=== PATIENT | male | born 1995 | race Caucasian/White ===

== ENCOUNTER 2016-10-14 19:27 | Emergency (ER) | payer OTHER ==
[~2016-10-14] VITALS: Ht 177.8 cm; Wt 84.0 kg
[2016-10-14 19:43] VITALS: BP 139/81; PULSE 86; RESP 16; TEMP 98.9; O2SAT 99
[2016-10-14] MEDS ORDERED: PROPARACAINE HCL 0.5% OPHT SOLN 15 ML BTL EACH EYE ONE (20:15)
--- NOTE | 2016-10-14 20:47 | PD ---
HPI Chief Complaint: Eye Problems/Injury Time Seen by Provider: 20:15 Travel History International Travel<30 days: No Contact w/Intl Traveler<30days: No Traveled to known affect area: No History of Present Illness HPI 21-year-old male presents emergency department for evaluation of right eye injury. Approximate 10 AM this morning patient reports he was weed whacking while at work and debris flew up into his right eye. He reports the pain was minimal but he noticed that his right pupil was larger than left. He then went to urgent care for evaluation of the right eye. According to his paperwork from the urgent care there was concern by the examining physician that there was fluorescein dye uptake in the anterior portion of the eye. He was instructed to have a prompt ophthalmology consult today but reports his workman' s comp never set up the appointment so he presents to the emergency department. Patient reports mild discomfort of the right eye. Mild blurred vision caused by tearing of the right eye. He reports that the pupil size has reduced improved since this morning. He denies headache, painful eye movement, nausea/ vomiting. PFSH Past Medical History Medical History: Denies Significant Hx ADHD: No Depression: Yes Cancer: No Cardiovascular Problems: No Diabetes: No Diminished Hearing: No Psychiatric: Yes (HX ODD IN PAST) Immunizations Current: Yes Migraines: Yes (PER PT-PT AND WHOLE ENTIRE FAMILY GETS MIGRAINES-UNTREATED) Seizures: No Thyroid Disease: No Ulcer: Yes (1 year ago) Tetanus Vaccination: < 5 Years Influenza Vaccination: No ?: Not Past Surgical History Appendectomy: No Cholecystectomy: No Other Surgery: No Social History Alcohol Use: No Tobacco Use: Yes (1 PPD) Substance Use: Yes (USES MARIJUANA 1-2 TIMES PER WEEK ( BY HX )) Allergies-Medications (Allergen,Severity, Reaction): Coded Allergies: Dilaudid (Verified Allergy, Severe, Hives, 11/16/15) Cat Dander (Verified Allergy, Mild, STUFFY NOSE, 10/12/15) Reported Meds & Prescriptions Reported Meds & Active Scripts Active Review of Systems Except as stated in HPI: all other systems reviewed are Neg Physical Exam Narrative GENERAL: Well-nourished, well-developed patient. SKIN: Focused skin assessment warm/dry. HEAD: Normocephalic. EYES: No scleral icterus. Right eye: Mild injection. Pupil 6-7 mm. Reactive to light. Cornea is clear. No foreseen dye uptake. No evidence of penetrating wound or corneal abrasion. Painless and intact EOMs. Visual acuity 20/25. IOP 16 right eye/14 left eye. NECK: Supple, trachea midline. No JVD or lymphadenopathy. CARDIOVASCULAR: Regular rate and rhythm without murmurs, gallops, or rubs. RESPIRATORY: Breath sounds equal bilaterally. No accessory muscle use. GASTROINTESTINAL: Abdomen soft, non-tender, nondistended. MUSCULOSKELETAL: No cyanosis, or edema. BACK: Nontender without obvious deformity. No CVA tenderness. Data Data Last Documented VS Vital Signs Date Time Temp Pulse Resp B/P Pulse Ox O2 Delivery O2 Flow Rate FiO2 10/14/16 19:43 98.9 86 16 139/81 99 Orders Proparacaine 0.5% Opth Soln (Alcaine 0.5 (10/14/16 20:15) MDM Medical Decision Making Medical Screen Exam Complete: Yes Emergency Medical Condition: Yes Differential Diagnosis Mydriasis, traumatic iritis, corneal abrasion Narrative Course 21-year-old male presents emergency department for evaluation of right eye injury at 10 AM this morning. Patient reports that while weed whacking at work yard debris flew up hitting his right eye. He reports only minimal pain at the time of the event but noticed that his right pupil was larger than his left prompting evaluation at an urgent care. On exam in the emergency department the patient is noted to have right pupil slightly larger than left which is reactive to light. Corneas are clear there is no evidence of penetrating wound or corneal abrasion. His visual acuity is equal to that of the unaffected eye. He has minimal pain. Patient's exam is consistent with traumatic iritis. Patient will be referred to the on-call wet and dry sugar bin operator for follow-up tomorrow. Diagnosis Primary Impression: Traumatic iritis Referrals: Dr Yanet Diez Additional Instructions: Make appointment for follow-up with the wet and dry sugar bin operator Dr. Diez for tomorrow. Return to the emergency department if he develops new or worsening symptoms. Scripts Erythromycin Opth Oint 5 Mg/Gm Oint1 Applic RIGHT EYE QID #1 TUBE Ref 0 Prov:Mague Archer 10/14/16 Disposition: 01 DISCHARGE HOME Condition: Stable Mague Archer Oct 14, 2016 20:47
[2016-10-14] MEDS ORDERED: ERYTOIN10 RIGHT EYE (20:56)
== END 2016-10-14 21:12 | disposition home or self-care (01) ==
LOC: PHEFT 19:27
DX: H20.9 Unspecified iridocyclitis (principal); F17.210 Nicotine dependence, cigarettes, uncomplicated; F12.90 Cannabis use, unspecified, uncomplicated; W29.3XXA Contact with powered garden and outdoor hand tools and machinery, initial encounter; W20.8XXA Other cause of strike by thrown, projected or falling object, initial encounter; Y93.H2 Activity, gardening and landscaping; Y99.0 Civilian activity done for income or pay
CPT/HCPCS: 99283